=== PATIENT | male | born 1945 | race Caucasian/White ===

== ENCOUNTER 2020-09-17 12:46 | Emergency (ER) | payer MEDICARE, OTHER ==
[2020-09-17 13:31] LABS: BASOPHIL % 0.4 % (0.0-0.4); Basophil (Absolute #) 0.05 (0-0.4); Eosinophil % 3.2 % (0.00-5.0); Eosinophil (Absolute #) 0.44 (0-0.5); Hematocrit 34.4 % (42-50); Hemoglobin 10.8 gm/dl (12.5-18.0); Lymphocyte (Absolute #) 1.42 (1.0-4.6); Lymphocytes % 10.2 % (24.0-44.0); Mean Cell Volume 87.5 fl (78-100); Mean Corpuscular Hemoglobin 27.5 pg (26-32); Mean Corpuscular Hgb Concent. 31.4 g/dl (32-36); Mean Platelet Volume 10.4 fl (7.5-11.0); Monocyte (Absolute #) 0.62 (0.0-1.3); Monocytes % 4.5 % (0.0-12.0); Neutrophil % 81.7 % (36.0-66.0); Platelet Count 215 K/mm3 (150-450); Red Blood Count 3.93 M/mm3 (4.1-5.6); Red Cell Distribution Width 13.5 % (11.5-14.0); White Blood Count 13.9 K/mm3 (4.0-10.5)
[2020-09-17 13:32] LABS: INR 1.07 (0.8-3.0); PROTIME 12.1 SECONDS (8.83-12.87)
[2020-09-17 13:35] LABS: PTT 25.5 SECONDS (24.1-36.1)
[2020-09-17 13:38] LABS: ALBUMIN 3.5 g/dL (3.5-5.0); ALKALINE PHOSPHATASE 76 U/L (38-126); ANION GAP 11.4 MEQ/L (5-15); BLOOD UREA NITROGEN 31 mg/dL (9-20); CHLORIDE 102 mmol/L (98-107); Calcium 8.8 mg/dL (8.4-10.2); Carbon Dioxide 26 mmol/L (22-30); Creatinine 1 1.23 mg/dL (0.66-1.25); EST GLOMERULAR FILTRATION RATE > 60.0 ML/MIN; Glucose 189 mg/dL (74-106); Potassium 4.5 mmol/L (3.5-5.1); SGOT/AST 32 U/L (17-59); SGPT/ALT 19 U/L (0-50); SODIUM 136 mmol/L (137-145); Total Protein 6.1 g/dL (6.3-8.2)
--- NOTE | 2020-09-17 13:50 | ERPHSYRPT ---
- History of Present Illness Source: patient, EMS Exam Limitations: other (Pt w h/o dementia) Patient Subjective Stated Complaint: pt here for falling againist hes walker about an hour ago, pt is confused but family though he was more confused, ems states he is hes normal mentation now, pt co pain to left abd where he fell againist walker,pt co headache and dizziness Triage Nursing Assessment: pt alert, face mask in place, pt knows name, date of , place but note date of month. resp easy, skin w/d/p, linen controller equal and strong, Physician History: 74 yo wm w fall at home in yard. Pt fell against walker. Occurred: just prior to arrival Reason for Fall: unknown Injuries/Pain Location: head, neck, back Loss of Consciousness: other (Unknown) Quality: aching Modifying Factors: Improves With: movement Allergies/Adverse Reactions: clopidogrel bisulfate [From Plavix] Adverse Reaction (Verified 09/17/20 12:59) Home Medications: Amlodipine Besylate 5 mg [Norvasc 5 mg] 5 mg PO DAILY 12/31/15 [History] Aspirin/Dipyridamole [Aggrenox 25 mg-200 mg Capsule] 1 tab PO BID 12/31/15 [History] Atorvastatin Calcium 40 mg PO HS 12/31/15 [History] Hydrochlorothiazide 25 mg [hydroDIURIL 25 MG] 25 mg PO DAILY 12/31/15 [History] Insulin Glargine,Hum.rec.anlog [Lantus Solostar] 30 ml SQ HS 12/31/15 [History] Insulin Lispro [Humalog Kwikpen U-100] 20 units SQ TID 12/31/15 [History] Memantine HCl [Namenda Xr] 1 cap PO DAILY 12/31/15 [History] Metformin HCl 1000 mg [Glucophage 1000 MG] 1,000 mg PO BID 12/31/15 [History] Multivitamin W-Minerals/Lutein [Centrum Silver Tablet] 1 tab PO DAILY 12/31/15 [History] Rivastigmine Tartrate [Exelon] 6 mg PO BID 12/31/15 [History] Triamcinolone Acetonide 0.1% [Kenalog 0.1% Ointment] 1 appful TOP BID 12/31/15 [History] Hx Influenza Vaccination/Date Given: Yes Hx Pneumococcal Vaccination/Date Given: Yes Immunizations Up to Date: Yes Travel Risk - International Travel Have you traveled outside of the country in past 3 weeks: No - Coronavirus Screening Are you exhibiting any of the following symptoms?: No Close contact with a COVID-19 positive Pt in past 14-21 Days: No - Past Medical History Pertinent Past Medical History: Yes Neurological History: Stroke Cardiac History: Congestive Heart Failure, Coronary Artery Disease, High Cholesterol, Hypertension, Other Respiratory History: No Pertinent History Endocrine Medical History: Diabetes Type II Musculoskeletal History: No Pertinent History Other Medical History: PATIENT VAGUE WITH HX - SAYS CAN'T REMEMBER MULTIPLE TIMES - UNABLE TO RECALL MEDICATIONS BUT DID SAY HE TOOK MEDS AND BLOOD PRESSURE WAS GOOD. STATES HE CHECKS HIS BLOOD SUGAR AND SOMETIMES HAS TO TAKE A SHOT. MEDICAL HX PER HOSPITAL REPORT: - AORTIC VALVE STENOSIS WITH HX OF REPLACEMENT. - HX OF KIDNEY STONES. - LEARNING DISABILITY - Past Surgical History Past Surgical History: No - Social History Smoking Status: Former smoker Exposure to second hand smoke: Yes Drug Use: none Patient Lives Alone: No - Nursing Vital Signs Nursing Vital Signs: Initial Vital Signs Blood Pressure 130/59 09/17/20 12:47 Pain Scale Pain Intensity 5 - David Coma Score Best Eye Response (David): (4) open spontaneously Best Verbal Response ([place]): (4) confused conversation Best Motor Response (David): (6) obeys commands David Total: 14 - Physical Exam General Appearance: no apparent distress Head Injury: no evidence of injury (Complains of DHALIWAL) Eye Exam: PERRL/EOMI, eyes nml inspection ENT Exam: airway nml, No evidence of ENT injury, No dental injury, No clear fluid (ears), No clear fluid (nose) Neck Exam: supple, trachea midline (C-spine TTP) Respiratory/Chest Exam: normal breath sounds, No respiratory distress (L posterior inferior thorax ttp) Cardiovascular Exam: normal heart sounds, regular rate/rhythm, normal peripheral pulses, No murmur, No edema Gastrointestinal Exam: soft, normal bowel sounds, No tenderness Back Exam: normal inspection (No T or L-spine TTP/L posterior inferior thorax ttp) Extremity Exam: normal inspection, normal range of motion, capillary refill <3 sec, pelvis stable (L CVA TTP) Peripheral Pulses: carotid (R): 2+, carotid (L): 2+ Neurologic Exam: alert, cooperative, 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, normal mood/affect, sensation nml, No motor deficits, No sensory deficit (Disoriented to time(Baseline)) Skin Exam: normal color, warm, dry, No rash SpO2 Interpretation: normal O2 Delivery: Room Air - Course Nursing assessment & vital signs reviewed: Yes EKG Interpreted by Me: RATE (NSR/R63/Normal QT-QTc/Non-specific ST-T wave changes/Nothing acute) Ordered Tests: Active Orders 24 hr Category Date Time Status EKG-ER Only STAT Care 09/17/20 13:08 Completed IV Insertion STAT Care 09/17/20 13:08 Completed ABDOMEN AND PELVIS W CONTRAST [CT] Stat Exams 09/17/20 13:55 Completed CERVICAL SPINE WO CONTRAST [CT] Stat Exams 09/17/20 14:56 Completed CHEST WITH CONTRAST [CT] Stat Exams 09/17/20 13:56 Completed HEAD WITHOUT CONTRAST [CT] Stat Exams 09/17/20 13:06 Completed CBC W DIFF Stat Lab 09/17/20 13:23 Completed CMP Stat Lab 09/17/20 13:23 Completed CULTURE,URINE Stat Lab 09/17/20 15:00 Received ETHYL ALCOHOL Stat Lab 09/17/20 13:23 Completed PROTIME WITH INR Stat Lab 09/17/20 13:23 Completed PTT Stat Lab 09/17/20 13:23 Completed TROPONIN Q3H Lab 09/17/20 13:23 Completed UA W/RFX UR CULTURE Stat Lab 09/17/20 15:00 Completed Urine Triage Profile Stat Lab 09/17/20 14:07 Completed Medication Summary Discontinued Medications Generic Name Dose Route Start Last Admin Trade Name Basilia PRN Reason Stop Dose Admin Fentanyl Citrate 25 mcg 09/17/20 16:00 09/17/20 16:27 Sublimaze 100 Mcg/2 Ml IV 09/17/20 16:01 Not Given STAT ONE Fentanyl Citrate Confirm 09/17/20 16:03 Sublimaze 100 Mcg/2 Ml Administered 09/17/20 16:04 Dose 100 mcg .ROUTE .STK-MED ONE Sodium Chloride 1,000 mls @ 999 mls/hr 09/17/20 16:05 09/17/20 16:07 Sodium Chloride 0.9% 1000 Ml IV 09/17/20 17:05 999 mls/hr .Q1H1M STA Administration Sodium Chloride Confirm 09/17/20 16:05 Sodium Chloride 0.9% 1000 Ml Administered 09/17/20 16:06 Dose 1,000 mls @ ud .ROUTE .STK-MED ONE Ondansetron HCl 4 mg 09/17/20 16:01 09/17/20 16:07 Zofran 4 Mg/2 Ml Vial IV 09/17/20 16:02 4 mg STAT ONE Administration Ondansetron HCl Confirm 09/17/20 16:02 Zofran 4 Mg/2 Ml Vial Administered 09/17/20 16:03 Dose 4 mg .ROUTE .STK-MED ONE Ondansetron HCl Confirm 09/17/20 16:07 Zofran 4 Mg/2 Ml Vial Administered 09/17/20 16:08 Dose 4 mg .ROUTE .STK-MED ONE Lab/Rad Data: Laboratory Result Diagrams 09/17/20 13:23 09/17/20 13:23 Laboratory Results 09/17/20 09/17/20 09/17/20 Range/Units 15:00 14:07 13:23 WBC (4.0-10.5) K/mm3 RBC (4.1-5.6) M/mm3 Hgb (12.5-18.0) gm/dl Hct (42-50) % MCV (78-100) fl MCH (26-32) pg MCHC (32-36) g/dl RDW (11.5-14.0) % Plt Count (150-450) K/mm3 MPV (7.5-11.0) fl Gran % (36.0-66.0) % Eos # (Auto) (0-0.5) Absolute Lymphs (auto) (1.0-4.6) Absolute Monos (auto) (0.0-1.3) Lymphocytes % (24.0-44.0) % Monocytes % (0.0-12.0) % Eosinophils % (0.00-5.0) % Basophils % (0.0-0.4) % Absolute Granulocytes (1.4-6.9) Basophils # (0-0.4) PT (8.83-12.87) SECONDS INR (0.8-3.0) APTT (24.1-36.1) SECONDS Sodium (137-145) mmol/L Potassium (3.5-5.1) mmol/L Chloride (98-107) mmol/L Carbon Dioxide (22-30) mmol/L Anion Gap (5-15) MEQ/L BUN (9-20) mg/dL Creatinine (0.66-1.25) mg/dL Estimated GFR ML/MIN Glucose (74-106) mg/dL Calcium (8.4-10.2) mg/dL Total Bilirubin (0.2-1.3) mg/dL AST (17-59) U/L ALT (0-50) U/L Alkaline Phosphatase (38-126) U/L Troponin I (0.000-0.034) ng/mL Serum Total Protein (6.3-8.2) g/dL Albumin (3.5-5.0) g/dL Urine Color YELLOW (YELLOW) Urine Appearance SLIGHTLY CLOUDY (CLEAR) Urine pH 5.0 (5-6) Ur Specific [place] 1.019 (1.005-1.025) Urine Protein 100 (Negative) Urine Ketones NEGATIVE (NEGATIVE) Urine Blood SMALL (0-5) Brian/ul Urine Nitrite NEGATIVE (NEGATIVE) Urine Bilirubin NEGATIVE (NEGATIVE) Urine Urobilinogen NEGATIVE (0-1) mg/dL Ur Leukocyte Esterase TRACE (NEGATIVE) Urine WBC (Auto) 26-50 (0-5) /HPF Urine RBC (Auto) 11-15 (0-2) /HPF U Epithel Cells (Auto) NONE (FEW) /HPF Urine Bacteria (Auto) FEW (NEGATIVE) /HPF Urine Mucus (Auto) SLIGHT (NEGATIVE) /HPF Urine Culture Reflexed YES (NO) Urine Glucose 50 (NEGATIVE) mg/dL Urine Opiates Level NEGATIVE (NEGATIVE) Ur Methadone NEGATIVE (NEGATIVE) Urine Barbiturates NEGATIVE (NEGATIVE) Ur Phencyclidine (PCP) NEGATIVE (NEGATIVE) Urine Amphetamine NEGATIVE (NEGATIVE) U Benzodiazepine Level NEGATIVE (NEGATIVE) Urine Cocaine NEGATIVE (NEGATIVE) Urine Marijuana (THC) NEGATIVE (NEGATIVE) Ethyl Alcohol < 10 (0-10) mg/dL 09/17/20 09/17/20 09/17/20 Range/Units 13:23 13:23 13:23 WBC (4.0-10.5) K/mm3 RBC (4.1-5.6) M/mm3 Hgb (12.5-18.0) gm/dl Hct (42-50) % MCV (78-100) fl MCH (26-32) pg MCHC (32-36) g/dl RDW (11.5-14.0) % Plt Count (150-450) K/mm3 MPV (7.5-11.0) fl Gran % (36.0-66.0) % Eos # (Auto) (0-0.5) Absolute Lymphs (auto) (1.0-4.6) Absolute Monos (auto) (0.0-1.3) Lymphocytes % (24.0-44.0) % Monocytes % (0.0-12.0) % Eosinophils % (0.00-5.0) % Basophils % (0.0-0.4) % Absolute Granulocytes (1.4-6.9) Basophils # (0-0.4) PT 12.1 (8.83-12.87) SECONDS INR 1.07 (0.8-3.0) APTT 25.5 (24.1-36.1) SECONDS Sodium 136 L (137-145) mmol/L Potassium 4.5 (3.5-5.1) mmol/L Chloride 102 (98-107) mmol/L Carbon Dioxide 26 (22-30) mmol/L Anion Gap 11.4 (5-15) MEQ/L BUN 31 H (9-20) mg/dL Creatinine 1.23 (0.66-1.25) mg/dL Estimated GFR > 60.0 ML/MIN Glucose 189 H (74-106) mg/dL Calcium 8.8 (8.4-10.2) mg/dL Total Bilirubin 0.70 (0.2-1.3) mg/dL AST 32 (17-59) U/L ALT 19 (0-50) U/L Alkaline Phosphatase 76 (38-126) U/L Troponin I < 0.012 (0.000-0.034) ng/mL Serum Total Protein 6.1 L (6.3-8.2) g/dL Albumin 3.5 (3.5-5.0) g/dL Urine Color (YELLOW) Urine Appearance (CLEAR) Urine pH (5-6) Ur Specific [place] (1.005-1.025) Urine Protein (Negative) Urine Ketones (NEGATIVE) Urine Blood (0-5) Brian/ul Urine Nitrite (NEGATIVE) Urine Bilirubin (NEGATIVE) Urine Urobilinogen (0-1) mg/dL Ur Leukocyte Esterase (NEGATIVE) Urine WBC (Auto) (0-5) /HPF Urine RBC (Auto) (0-2) /HPF U Epithel Cells (Auto) (FEW) /HPF Urine Bacteria (Auto) (NEGATIVE) /HPF Urine Mucus (Auto) (NEGATIVE) /HPF Urine Culture Reflexed (NO) Urine Glucose (NEGATIVE) mg/dL Urine Opiates Level (NEGATIVE) Ur Methadone (NEGATIVE) Urine Barbiturates (NEGATIVE) Ur Phencyclidine (PCP) (NEGATIVE) Urine Amphetamine (NEGATIVE) U Benzodiazepine Level (NEGATIVE) Urine Cocaine (NEGATIVE) Urine Marijuana (THC) (NEGATIVE) Ethyl Alcohol (0-10) mg/dL 09/17/20 Range/Units 13:23 WBC 13.9 H (4.0-10.5) K/mm3 RBC 3.93 L (4.1-5.6) M/mm3 Hgb 10.8 L (12.5-18.0) gm/dl Hct 34.4 L (42-50) % MCV 87.5 (78-100) fl MCH 27.5 (26-32) pg MCHC 31.4 L (32-36) g/dl RDW 13.5 (11.5-14.0) % Plt Count 215 (150-450) K/mm3 MPV 10.4 (7.5-11.0) fl Gran % 81.7 H (36.0-66.0) % Eos # (Auto) 0.44 (0-0.5) Absolute Lymphs (auto) 1.42 (1.0-4.6) Absolute Monos (auto) 0.62 (0.0-1.3) Lymphocytes % 10.2 L (24.0-44.0) % Monocytes % 4.5 (0.0-12.0) % Eosinophils % 3.2 (0.00-5.0) % Basophils % 0.4 (0.0-0.4) % Absolute Granulocytes 11.40 H (1.4-6.9) Basophils # 0.05 (0-0.4) PT (8.83-12.87) SECONDS INR (0.8-3.0) APTT (24.1-36.1) SECONDS Sodium (137-145) mmol/L Potassium (3.5-5.1) mmol/L Chloride (98-107) mmol/L Carbon Dioxide (22-30) mmol/L Anion Gap (5-15) MEQ/L BUN (9-20) mg/dL Creatinine (0.66-1.25) mg/dL Estimated GFR ML/MIN Glucose (74-106) mg/dL Calcium (8.4-10.2) mg/dL Total Bilirubin (0.2-1.3) mg/dL AST (17-59) U/L ALT (0-50) U/L Alkaline Phosphatase (38-126) U/L Troponin I (0.000-0.034) ng/mL Serum Total Protein (6.3-8.2) g/dL Albumin (3.5-5.0) g/dL Urine Color (YELLOW) Urine Appearance (CLEAR) Urine pH (5-6) Ur Specific [place] (1.005-1.025) Urine Protein (Negative) Urine Ketones (NEGATIVE) Urine Blood (0-5) Brian/ul Urine Nitrite (NEGATIVE) Urine Bilirubin (NEGATIVE) Urine Urobilinogen (0-1) mg/dL Ur Leukocyte Esterase (NEGATIVE) Urine WBC (Auto) (0-5) /HPF Urine RBC (Auto) (0-2) /HPF U Epithel Cells (Auto) (FEW) /HPF Urine Bacteria (Auto) (NEGATIVE) /HPF Urine Mucus (Auto) (NEGATIVE) /HPF Urine Culture Reflexed (NO) Urine Glucose (NEGATIVE) mg/dL Urine Opiates Level (NEGATIVE) Ur Methadone (NEGATIVE) Urine Barbiturates (NEGATIVE) Ur Phencyclidine (PCP) (NEGATIVE) Urine Amphetamine (NEGATIVE) U Benzodiazepine Level (NEGATIVE) Urine Cocaine (NEGATIVE) Urine Marijuana (THC) (NEGATIVE) Ethyl Alcohol (0-10) mg/dL - Progress Progress Note: 09/17/20 15:[address] Saldivar at [facility] Counseled pt/family regarding: lab results, rad results - Departure Departure Disposition: Transfer Clinical Impression: Fracture, ribs, Retroperitoneal hematoma Condition: Stable Critical Care Time: No Referrals: HARLAN BEAL, [Primary Care Provider] -
--- NOTE | 2020-09-17 15:08 | XRAY ---
Indication: Pain following fall. Multiple contiguous axial images obtained through the cervical spine. Sagittal and coronal reformatted images obtained. Comparison: None Osseous structures demineralized consistent with patient's age. Axial images negative for acute fracture, suspicious bony lesions, or spinal canal stenosis. Minimal/mild multilevel anterior endplate spurring. Sagittal and coronal reformatted images demonstrates normal alignment with vertebral body heights/disc spaces maintained. No acute compression fracture, subluxation, or jumped facet. Normal-appearing craniocervical junction. Visualized noncontrasted soft tissues demonstrates moderate bilateral carotid and vertebral artery calcifications. CT head and CT chest reported separately. Impression: 1. Negative for acute fracture/subluxation. 2. Osteopenia, multilevel endplate spurring, and scattered arteriosclerotic calcifications.
--- NOTE | 2020-09-17 15:09 | XRAY ---
Indication: Pain following fall. Multiple contiguous images obtained through the head without contrast. Comparison: None Age-appropriate global atrophy and moderate periventricular degenerative micro-ischemia bilaterally. Small subcentimeter remote infarcts left basal ganglia, right anterior morris radiata, and left posterior morris radiata. No acute intracranial hemorrhage, abnormal extra-axial fluid collection, or mass effect. Fourth ventricle is midline without hydrocephalus. Bony calvarium intact. Visualized paranasal sinuses and mastoid air cells are clear. Impression: Nonacute senile brain with multifocal small old infarcts.
--- NOTE | 2020-09-17 15:13 | XRAY ---
Indication: Pain following fall. Multiple contiguous axial images obtained through the chest using 100 cc Isovue 370 contrast. Comparison: December 31, 2015. Lungs demonstrate moderate bilateral dependent atelectasis greatest in the lung bases. New tiny left effusion. Stable scattered calcified granulomas bilaterally. No suspicious pulmonary mass, infiltrate, effusion, or pneumothorax. Heart is not enlarged with stable aortic valve replacement surgery. Aorta remains minimally arteriosclerotic without aneurysm/dissection. Stable tiny mediastinal and bilateral hilar calcified nodes. No pathologic lymphadenopathy. Bony thorax demonstrates new minimally displaced left posterior 10-12 rib and nondisplaced lateral left 7 rib fractures. Stable osteopenia and mild degenerative changes throughout the spine. CT abdomen/pelvis reported separately. Impression: 1. New left 7 and left 10-12 rib fractures with tiny hemothorax. No pneumothorax. 2. Stable osteopenia, degenerative spondylosis, and old granulomatous disease. 3. Remaining CT chest with contrast exam is negative.
--- NOTE | 2020-09-17 15:21 | XRAY ---
Indication: Pain following fall. Multiple contiguous axial images obtained through the abdomen and pelvis using 100 cc Isovue 370 contrast. Comparison: None CT chest and left rib fractures reported separately. There is large left retroperitoneal hemorrhage at least 6.7 x 13 x 20 cm in greatest AP, transverse, and CC projections respectively displacing the left kidney anteriorly. No intra-abdominal free fluid/air. Noncontrasted stomach and bowel loops appear nonobstructed. Normal appendix. Sigmoid diverticulosis without diverticulitis and benign appearing chunky prostate calcifications. A few hepatic/splenic calcified granulomas. Remaining liver, gallbladder, pancreas, spleen, adrenal glands, kidneys, ureters, and bladder appear unremarkable. Diffuse scattered vascular calcifications. No AAA or pathologic retroperitoneal lymphadenopathy. Osseous structures intact with mild osteopenia and mild multilevel thoracolumbar degenerative spondylosis. Impression: 1. Large left retroperitoneal hematoma. 2. Incidental sigmoid diverticulosis, benign prostate calcifications, chronic bony findings, and old granulomatous disease. Comment: Telephone report was given to ordering clinician Dr. Min at 1515 hrs. on September 17, 2020.
[2020-09-17 15:36] LABS: Amphetamine,Urine NEGATIVE (NEGATIVE); Barbiturate,Urine NEGATIVE (NEGATIVE); Benzodiazepine,Urine NEGATIVE (NEGATIVE); Cocaine,Urine NEGATIVE (NEGATIVE); Methadone,Urine NEGATIVE (NEGATIVE); Opiate,Urine NEGATIVE (NEGATIVE); PCP,Urine NEGATIVE (NEGATIVE); THC,Urine NEGATIVE (NEGATIVE)
[2020-09-17 15:37] LABS: Appearance SLIGHTLY CLOUDY (CLEAR); Bacteria FEW /HPF (NEGATIVE); Bilirubin NEGATIVE (NEGATIVE); Blood SMALL Ery/ul (0-5); Glucose 50 mg/dL (NEGATIVE); Ketones NEGATIVE (NEGATIVE); Leukocyte Esterase TRACE (NEGATIVE); Mucus SLIGHT /HPF (NEGATIVE); Nitrite NEGATIVE (NEGATIVE); Protein,Urine Dip 100 (Negative); Specific Gravity 1.019 (1.005-1.025); Urobilinogen NEGATIVE mg/dL (0-1); WBC 26-50 /HPF (0-5)
[2020-09-17] MEDS ORDERED: SUBLIMAZE 100 MCG/2 ML IV ONE (16:00)
[2020-09-17] MEDS ORDERED: Zofran 4 MG/2 ML VIAL IV ONE (16:01)
[2020-09-17] MEDS ORDERED: Zofran 4 MG/2 ML VIAL ONE ×2 (16:02→16:07)
[2020-09-17] MEDS ORDERED: SUBLIMAZE 100 MCG/2 ML ONE (16:03)
[2020-09-17] MEDS ORDERED: Sodium Chloride 0.9% 1000 ML 1,000 ML ONE (16:05)
[2020-09-17] MEDS ORDERED: Sodium Chloride 0.9% 1000 ML 1,000 ML IV STA (16:05)
[2020-09-17 16:26] VITALS: BP 130/59; PULSE 70; O2SAT 96
== END 2020-09-17 16:30 | disposition short-term general hospital (02) ==
LOC: ED 12:46
DX: S22.49XA Multiple fractures of ribs, unspecified side, initial encounter for closed fracture (principal); K66.1 Hemoperitoneum; R10.9 Unspecified abdominal pain; R51.9 Headache, unspecified; R42 Dizziness and giddiness; W19.XXXA Unspecified fall, initial encounter; I50.9 Heart failure, unspecified; I25.10 Atherosclerotic heart disease of native coronary artery without angina pectoris; E78.5 Hyperlipidemia, unspecified; I10 Essential (primary) hypertension; E11.9 Type 2 diabetes mellitus without complications; Z79.899 Other long term (current) drug therapy
CPT/HCPCS: 36000; 36415; 51702; 70450; 71260; 72125; 74177; 80053; 80307; 81001; 84484; 85025; 85610; 85730; 87077; 87086; 87186; 93005; 96374; 99285; G0480; P9612; J2405; J3010

== ENCOUNTER 2021-06-26 23:48 | Emergency (ER) | payer MEDICARE | END 2021-06-27 00:01 | disposition left against medical advice (07) | LOC: ED 23:48 | DX: Z53.21 Procedure and treatment not carried out due to patient leaving prior to being seen by health care provider (principal) | CPT/HCPCS: 99282 ==

== ENCOUNTER 2023-03-29 20:26 | Emergency (ER) | payer MEDICARE ==
[2023-03-29 20:59] VITALS: TEMP 97.9
--- NOTE | 2023-03-29 21:12 | ERPHSYRPT ---
- History of Present Illness Time Seen by Provider: 03/29/23 20:27 Source: patient, EMS, alf records Exam Limitations: clinical condition Patient Subjective Stated Complaint: per [facility] staff, the pt has been agitated and combative today. he stated to alf staff marquis he was gong to "kill himself" Triage Nursing Assessment: pt alert, confused. oriented to person only. pt arrive per ambulance and ambulates with assist from ems cot to stretcher. unsteady gait. respirations nonlabored with lungs cta. skin warm and dry. some small scabs noted to lower ext. pupils equal and reactive. bilat upper and lower ext strength equal and wnl. Physician History: 77 years old male with a history of hypertension, hyperlipidemia, diabetes mellitus, Alzheimer's dementia currently resident of alf is brought in the ER after patient was agitated earlier and tried to hit staff couple of times and later on made a comment that he is suicidal. Patient is awake and alert but not oriented on presentation. He is not agitated. He is sent in here for psychiatric evaluation. Further Allergies/Adverse Reactions: clopidogrel bisulfate [From Plavix] Adverse Reaction (Verified 03/29/23 20:59) Home Medications: Atorvastatin Calcium 40 mg PO HS 12/31/15 [History] Insulin Glargine,Hum.rec.anlog [Lantus Solostar] 30 ml SQ HS 12/31/15 [History] Insulin Lispro [Humalog Kwikpen U-100] 10 units SQ TIDAC 12/31/15 [History] Rivastigmine Tartrate [Exelon] 6 mg PO BID 12/31/15 [History] Cholecalciferol (Vitamin D3) [Vitamin D] 5,000 unit PO DAILY 03/29/23 [History] Clopidogrel Bisulfate [Clopidogrel] 75 mg PO DAILY 03/29/23 [History] Furosemide 40 mg [Lasix 40 MG] 40 mg PO DAILY 03/29/23 [History] Glucagon [Baqsimi] 3 mg NS UD 03/29/23 [History] Insulin Glargine [Lantus Insulin] 10 unit SQ DAILY 03/29/23 [History] Insulin Lispro [Humalog] 0 unit SQ UD 03/29/23 [History] Melatonin 5 mg PO HS 03/29/23 [History] Memantine HCl [Namenda] 10 mg PO BID 03/29/23 [History] Metoprolol Tartrate 25 mg [Lopressor 25MG Tab] 25 mg PO DAILY 03/29/23 [History] Potassium Chloride 10 meq PO BID 03/29/23 [History] Sertraline HCl [Zoloft] 25 mg PO DAILY 03/29/23 [History] Tamsulosin HCl 0.4 mg [Flomax 0.4 MG] 0.4 mg PO DAILY 03/29/23 [History] Trazodone HCl 50 mg [Desyrel 50 mg] 50 mg PO HSPRN PRN 03/29/23 [History] Hx Tetanus, Diphtheria Vaccination/Date Given: (uk) Hx Influenza Vaccination/Date Given: (uk) Hx Pneumococcal Vaccination/Date Given: Yes Immunizations Up to Date: (uk) Travel Risk - International Travel Have you traveled outside of the country in past 3 weeks: No - Coronavirus Screening Are you exhibiting any of the following symptoms?: No Close contact with a COVID-19 positive Pt in past 14-21 Days: No - Vaccine Status Have you recieved a Covid-19 vaccination: No (uk) - Review of Systems All Other Systems: Unable due to dementia - Past Medical History Pertinent Past Medical History: Yes Neurological History: Alzheimer's Disease, Dementia, Stroke Cardiac History: Coronary Artery Disease Respiratory History: CHF, Sleep Apnea Endocrine Medical History: Diabetes Type II Musculoskeletal History: No Pertinent History Other Medical History: pt unable to answer questions- hx obtained from pt's chart. - AORTIC VALVE STENOSIS WITH HX OF REPLACEMENT. - HX OF KIDNEY STONES. - LEARNING DISABILITY - Past Surgical History Past Surgical History: No Other Surgical History: obtained from previous visit - Social History Smoking Status: Former smoker Exposure to second hand smoke: Yes Drug Use: none Patient Lives Alone: No - Nursing Vital Signs Nursing Vital Signs: Initial Vital Signs Temperature 97.9 F 03/29/23 20:32 Pulse Rate 73 03/29/23 20:32 Respiratory Rate 18 03/29/23 20:32 Blood Pressure 185/68 03/29/23 20:32 O2 Sat by Pulse Oximetry 96 03/29/23 20:32 Pain Scale Pain Intensity 0 - Physical Exam General Appearance: no apparent distress, alert Eye Exam: PERRL/EOMI Ears, Nose, Throat Exam: normal ENT inspection Neck Exam: normal inspection, supple, full range of motion Respiratory Exam: normal breath sounds, lungs clear Cardiovascular Exam: regular rate/rhythm, normal heart sounds Gastrointestinal/Abdomen Exam: soft, normal bowel sounds, No tenderness Back Exam: normal inspection Extremity Exam: normal inspection, normal range of motion Neurologic Exam: alert, No oriented x 3 Skin Exam: normal color SpO2 Interpretation: normal SpO2: 96 O2 Delivery: Room Air Ordered Tests: Active Orders 24 hr Category Date Time Status EKG-ER Only STAT Care 03/29/23 21:00 Active cath [Cath for Specimen-Straight] STAT Care 03/29/23 20:44 Active CBC W DIFF Stat Lab 03/29/23 21:35 Completed CMP Stat Lab 03/29/23 21:35 Completed CULTURE,URINE Stat Lab 03/29/23 20:45 Received MAG [MAGNESIUM] Stat Lab 03/29/23 21:35 Completed UA W/RFX UR CULTURE Stat Lab 03/29/23 20:46 Completed Urine Triage Profile Stat Lab 03/29/23 20:45 Completed Medication Summary Generic Name Dose Route Start Last Admin Trade Name Freq PRN Reason Stop Dose Admin Sodium Chloride 1,000 mls @ 75 mls/hr 03/30/23 00:15 03/30/23 00:32 Sodium Chloride 0.9% 1000 Ml IV 04/29/23 00:14 Not Given .[id number] KELLEN Sodium Chloride 500 mls @ 500 mls/hr 03/30/23 00:28 03/30/23 00:30 Sodium Chloride 0.9% 500 Ml IV 03/30/23 01:27 500 mls/hr .Q1H ONE Administration Discontinued Medications Generic Name Dose Route Start Last Admin Trade Name Freq PRN Reason Stop Dose Admin Clonidine 0.2 mg 03/29/23 21:38 03/29/23 21:43 Clonidine Hcl 0.1 Mg Tablet PO 03/29/23 21:39 0.2 mg STAT ONE Administration Clonidine Confirm 03/29/23 21:42 Clonidine Hcl 0.1 Mg Tablet Administered 03/29/23 21:43 Dose 0.2 mg .ROUTE .STK-MED ONE Ceftriaxone Sodium/Dextrose 1 g in 50 mls @ 100 mls/hr 03/29/23 23:03 03/29/23 23:24 Rocephin 1 Gm-D5w 50 Ml Bag IV 03/29/23 23:32 100 ml/hr STAT STA 100 mls/hr Administration Ceftriaxone Sodium/Dextrose Confirm 03/29/23 23:21 Rocephin 1 Gm-D5w 50 Ml Bag Administered 03/29/23 23:22 Dose 1 g in 50 mls @ ud IV .STK-MED ONE Sodium Chloride Confirm 03/30/23 00:28 Sodium Chloride 0.9% 500 Ml Administered 03/30/23 00:29 Dose 500 mls @ ud IV .STK-MED ONE Lab/Rad Data: Laboratory Result Diagrams 03/29/23 21:35 03/29/23 21:35 Laboratory Results 03/29/23 03/29/23 03/29/23 Range/Units 21:35 21:35 21:35 WBC 8.9 (4.0-10.5) x10^3/uL RBC 4.44 (4.1-5.6) x10^6/uL Hgb 13.1 (12.5-18.0) g/dL Hct 40.6 L (42-50) % MCV 91.4 (78-100) fL MCH 29.5 (26-32) pg MCHC 32.3 (32-36) g/dL RDW 13.5 (11.5-14.0) % Plt Count 184 (150-450) x10^3/uL MPV 9.7 (7.5-11.0) fL Gran % 68.2 H (36.0-66.0) % Immature Gran % (Auto) 0.6 H (0.00-0.4) % Nucleat RBC Rel Count 0.0 (0.00-0.1) % Eos # (Auto) 0.49 (0-0.5) x10^3/uL Immature Gran # (Auto) 0.05 H (0.00-0.03) x10^3u/L Absolute Lymphs (auto) 1.47 (1.0-4.6) x10^3/uL Absolute Monos (auto) 0.76 (0.0-1.3) x10^3/uL Absolute Nucleated RBC 0.00 (0.00-0.01) x10^3u/L Lymphocytes % 16.4 L (24.0-44.0) % Monocytes % 8.5 (0.0-12.0) % Eosinophils % 5.5 H (0.00-5.0) % Basophils % 0.8 (0.0-0.4) % Absolute Granulocytes 6.10 (1.4-6.9) x10^3/uL Basophils # 0.07 (0-0.4) x10^3/uL Sodium 139 (137-145) mmol/L Potassium 4.4 (3.5-5.1) mmol/L Chloride 100 (98-107) mmol/L Carbon Dioxide 30 (22-30) mmol/L Anion Gap 13.0 (5-15) MEQ/L BUN 31 H (9-20) mg/dL Creatinine 1.75 H (0.66-1.25) mg/dL Estimated GFR 40.5 ML/MIN Glucose 289 H (74-106) mg/dL Calcium 8.4 (8.4-10.2) mg/dL Magnesium 2.0 (1.6-2.3) mg/dL Total Bilirubin 0.70 (0.2-1.3) mg/dL AST 22 (17-59) U/L ALT 20 (0-50) U/L Alkaline Phosphatase 104 (38-126) U/L Serum Total Protein 6.0 L (6.3-8.2) g/dL Albumin 3.3 L (3.5-5.0) g/dL Urine Color (Yellow) Urine Appearance (Clear) Urine pH (4.6-8.0) Ur Specific [place] (1.005-1.030) Urine Protein (Negative) Urine Glucose (UA) (Negative) mg/dL Urine Ketones (Negative) Urine Blood (Negative) Urine Nitrite (Negative) Urine Bilirubin (Negative) Urine Urobilinogen (0.2) mg/dL Ur Leukocyte Esterase (Negative) U Hyaline Cast (Auto) (0-2) /LPF Urine Microscopic RBC (0-5) /HPF Urine Microscopic WBC (0-5) /HPF Ur Epithelial Cells (None Seen) /HPF Urine Bacteria (None Seen) /HPF Urine Culture Reflexed (NO) Urine Opiates Level (NEGATIVE) Ur Methadone (NEGATIVE) Urine Barbiturates (NEGATIVE) Ur Phencyclidine (PCP) (NEGATIVE) Urine Amphetamine (NEGATIVE) U Benzodiazepine Level (NEGATIVE) Urine Cocaine (NEGATIVE) Urine Marijuana (THC) (NEGATIVE) 03/29/23 03/29/23 Range/Units 20:46 20:45 WBC (4.0-10.5) x10^3/uL RBC (4.1-5.6) x10^6/uL Hgb (12.5-18.0) g/dL Hct (42-50) % MCV (78-100) fL MCH (26-32) pg MCHC (32-36) g/dL RDW (11.5-14.0) % Plt Count (150-450) x10^3/uL MPV (7.5-11.0) fL Gran % (36.0-66.0) % Immature Gran % (Auto) (0.00-0.4) % Nucleat RBC Rel Count (0.00-0.1) % Eos # (Auto) (0-0.5) x10^3/uL Immature Gran # (Auto) (0.00-0.03) x10^3u/L Absolute Lymphs (auto) (1.0-4.6) x10^3/uL Absolute Monos (auto) (0.0-1.3) x10^3/uL Absolute Nucleated RBC (0.00-0.01) x10^3u/L Lymphocytes % (24.0-44.0) % Monocytes % (0.0-12.0) % Eosinophils % (0.00-5.0) % Basophils % (0.0-0.4) % Absolute Granulocytes (1.4-6.9) x10^3/uL Basophils # (0-0.4) x10^3/uL Sodium (137-145) mmol/L Potassium (3.5-5.1) mmol/L Chloride (98-107) mmol/L Carbon Dioxide (22-30) mmol/L Anion Gap (5-15) MEQ/L BUN (9-20) mg/dL Creatinine (0.66-1.25) mg/dL Estimated GFR ML/MIN Glucose (74-106) mg/dL Calcium (8.4-10.2) mg/dL Magnesium (1.6-2.3) mg/dL Total Bilirubin (0.2-1.3) mg/dL AST (17-59) U/L ALT (0-50) U/L Alkaline Phosphatase (38-126) U/L Serum Total Protein (6.3-8.2) g/dL Albumin (3.5-5.0) g/dL Urine Color Yellow (Yellow) Urine Appearance Cloudy A (Clear) Urine pH 5.5 (4.6-8.0) Ur Specific [place] 1.025 (1.005-1.030) Urine Protein 300 A (Negative) Urine Glucose (UA) >=1000 A (Negative) mg/dL Urine Ketones Negative (Negative) Urine Blood Small A (Negative) Urine Nitrite Positive A (Negative) Urine Bilirubin Negative (Negative) Urine Urobilinogen 1.0 A (0.2) mg/dL Ur Leukocyte Esterase Moderate A (Negative) U Hyaline Cast (Auto) 3-5 A (0-2) /LPF Urine Microscopic RBC 3-5 (0-5) /HPF Urine Microscopic WBC >100 A (0-5) /HPF Ur Epithelial Cells None Seen (None Seen) /HPF Urine Bacteria Many A (None Seen) /HPF Urine Culture Reflexed ORDERED SEPARATELY (NO) Urine Opiates Level NEGATIVE (NEGATIVE) Ur Methadone NEGATIVE (NEGATIVE) Urine Barbiturates NEGATIVE (NEGATIVE) Ur Phencyclidine (PCP) NEGATIVE (NEGATIVE) Urine Amphetamine NEGATIVE (NEGATIVE) U Benzodiazepine Level NEGATIVE (NEGATIVE) Urine Cocaine NEGATIVE (NEGATIVE) Urine Marijuana (THC) NEGATIVE (NEGATIVE) - Progress Progress: improved, re-examined Progress Note: 03/29/23 21:15 77 years old male with a history of hypertension, hyperlipidemia, diabetes mellitus, Alzheimer's dementia currently resident of alf is brought in the ER after patient was agitated earlier and tried to hit staff couple of times and later on made a comment that he is suicidal. Patient is awake and alert but not oriented on presentation. He is not agitated. He is sent in here for psychiatric evaluation. Patient is not agitated. Not in any distress. Vital stable. Once patient is medically clear, behavioral health evaluation will be obtained. 03/30/23 00:03 Patient remained calm while in the ER. Work-up showed normal white count, mild JUANA with baseline creatinine around 1.3 and today is 1.7. Given a bolus of fluid. Patient denies being suicidal and reported that patient gets upset with 1 particular staff at the alf. He does not have any history of suicidal attempt in the past. He is given Rocephin for UTI. I have discussed with Dr. Pro hospitalist on- call, reviewed history, work-up, hospitalist does not think patient needs to be admitted and since he is denying being suicidal and is calm, do not think psychiatric evaluation is needed. I have discussed with patient and and they agree with plan of going back to alf and will continue with antibiotics there. Discussed with Dr.: Other Will see patient in: hospital (observation) Counseled pt/family regarding: lab results, diagnosis Medical Desision Making - Discussion of managment Care discussed with:: hospitalist Reviewed:: Test results Agreed on:: Treatment plan, place in obs Will see patient: in hospital - Risk of complications The pt has a high risk of morbidity or mortality based on: Decision regarding hospitilization or escalation of hosp level of care - Departure Departure Disposition: Home Clinical Impression: Acute UTI, Dementia with aggressive behavior, JUANA (acute kidney injury) Condition: Stable Critical Care Time: No Referrals: JENELLE SMITH MD [ACTIVE STAFF] - Follow up with PCP 1 day Instructions: Urinary Tract Infection, Adult (DC) Additional Instructions: Follow-up with primary care for reevaluation 1-2 days. Drink plenty of fluids to keep yourself well-hydrated. Continue with antibiotics. Return to ER for worsening of symptoms. Prescriptions: Cephalexin Mh 500 mg [Keflex 500 mg] 500 mg PO TID #21 cap
[2023-03-29] MEDS ORDERED: CLONIDINE 0.1 MG TABLET PO ONE (21:38)
[2023-03-29] MEDS ORDERED: CLONIDINE 0.1 MG TABLET ONE (21:42)
[2023-03-29 21:44] LABS: ADD URINE CULTURE? ORDERED SEPARATELY (NO); Appearance Cloudy (Clear); Bacteria Many /HPF (None Seen); Bilirubin Negative (Negative); Blood Small (Negative); Epithelial Cells None Seen /HPF (None Seen); Glucose, Urine >=1000 mg/dL (Negative); Ketones Negative (Negative); Leukocyte Esterase Moderate (Negative); Nitrite Positive (Negative); Ph 5.5 (4.6-8.0); Protein,Urine Dip 300 (Negative); Specific Gravity 1.025 (1.005-1.030); WBC >100 /HPF (0-5)
[2023-03-29 21:44] LABS: Amphetamine,Urine NEGATIVE (NEGATIVE); Barbiturate,Urine NEGATIVE (NEGATIVE); Benzodiazepine,Urine NEGATIVE (NEGATIVE); Cocaine,Urine NEGATIVE (NEGATIVE); Methadone,Urine NEGATIVE (NEGATIVE); Opiate,Urine NEGATIVE (NEGATIVE); PCP,Urine NEGATIVE (NEGATIVE); THC,Urine NEGATIVE (NEGATIVE)
[2023-03-29 21:48] LABS: BASOPHIL % 0.8 % (0.0-0.4); Basophil (Absolute #) 0.07 x10^3/uL (0-0.4); Eosinophil % 5.5 % (0.00-5.0); Eosinophil (Absolute #) 0.49 x10^3/uL (0-0.5); Hematocrit 40.6 % (42-50); Hemoglobin 13.1 g/dL (12.5-18.0); IMMATURE GRAN # 0.05 x10^3u/L (0.00-0.03); IMMATURE GRAN % 0.6 % (0.00-0.4); Lymphocyte (Absolute #) 1.47 x10^3/uL (1.0-4.6); Lymphocytes % 16.4 % (24.0-44.0); Mean Cell Volume 91.4 fL (78-100); Mean Corpuscular Hemoglobin 29.5 pg (26-32); Mean Corpuscular Hgb Concent. 32.3 g/dL (32-36); Mean Platelet Volume 9.7 fL (7.5-11.0); Monocyte (Absolute #) 0.76 x10^3/uL (0.0-1.3); Monocytes % 8.5 % (0.0-12.0); Neutrophil % 68.2 % (36.0-66.0); Platelet Count 184 x10^3/uL (150-450); Red Blood Count 4.44 x10^6/uL (4.1-5.6); Red Cell Distribution Width 13.5 % (11.5-14.0); White Blood Count 8.9 x10^3/uL (4.0-10.5)
[2023-03-29 22:05] LABS: ALBUMIN 3.3 g/dL (3.5-5.0); BILIRUBIN,TOTAL 0.7 mg/dL (0.2-1.3); Calcium 8.4 mg/dL (8.4-10.2); Creatinine 1 1.75 mg/dL (0.66-1.25); EST GLOMERULAR FILTRATION RATE 40.5 ML/MIN; Potassium 4.4 mmol/L (3.5-5.1)
[2023-03-29] MEDS ORDERED: ROCEPHIN 1 Gm-D5w 50 ml Bag** 1 G/50 ML IVPB IV STA (23:03)
[2023-03-29] MEDS ORDERED: ROCEPHIN 1 Gm-D5w 50 ml Bag** 1 G/50 ML IVPB IV ONE (23:21)
[2023-03-30] MEDS ORDERED: Sodium Chloride 0.9% 1000 ML 1,000 ML IV SCH (00:15)
[2023-03-30] MEDS ORDERED: Sodium Chloride 0.9% 500 ML 500 ML IV ONE ×2 (00:28)
[2023-03-30 01:51] VITALS: BP 126/63; PULSE 64; RESP 16; O2SAT 99
== END 2023-03-30 01:51 | disposition home or self-care (01) ==
LOC: ED 20:26
DX: N39.0 Urinary tract infection, site not specified (principal); N17.9 Acute kidney failure, unspecified; G30.9 Alzheimer's disease, unspecified; F02.811 Dementia in other diseases classified elsewhere, unspecified severity, with agitation; E11.9 Type 2 diabetes mellitus without complications; Z79.4 Long term (current) use of insulin; Z79.02 Long term (current) use of antithrombotics/antiplatelets; Z79.899 Other long term (current) drug therapy
CPT/HCPCS: 36415; 80053; 80307; 81001; 83735; 85025; 87077; 87086; 87186; 93005; 96360; 96365; 99284; P9612; J0696; A9270-GY

== ENCOUNTER 2023-05-02 22:16 | Observation (INO) | payer MEDICARE ==
[2023-05-02 22:56] LABS: Absolute Neutrophil Ct (ANC) 6.53 x10^3/uL (1.4-6.9); BASOPHIL % 0.5 % (0.0-0.4); Basophil (Absolute #) 0.04 x10^3/uL (0-0.4); Eosinophil % 0.4 % (0.00-5.0); Eosinophil (Absolute #) 0.03 x10^3/uL (0-0.5); Hematocrit 42.2 % (42-50); Hemoglobin 13.7 g/dL (12.5-18.0); IMMATURE GRAN # 0.03 x10^3u/L (0.00-0.03); IMMATURE GRAN % 0.4 % (0.00-0.4); Lymphocyte (Absolute #) 0.86 x10^3/uL (1.0-4.6); Lymphocytes % 10.3 % (24.0-44.0); Mean Cell Volume 89.6 fL (78-100); Mean Corpuscular Hemoglobin 29.1 pg (26-32); Mean Corpuscular Hgb Concent. 32.5 g/dL (32-36); Mean Platelet Volume 9.9 fL (7.5-11.0); Monocyte (Absolute #) 0.87 x10^3/uL (0.0-1.3); Monocytes % 10.4 % (0.0-12.0); Platelet Count 225 x10^3/uL (150-450); Red Blood Count 4.71 x10^6/uL (4.1-5.6); Red Cell Distribution Width 13.2 % (11.5-14.0); White Blood Count 8.4 x10^3/uL (4.0-10.5)
[2023-05-02 23:18] LABS: Calcium 8.6 mg/dL (8.4-10.2); Creatinine 1 1.56 mg/dL (0.66-1.25); EST GLOMERULAR FILTRATION RATE 46.2 ML/MIN
--- NOTE | 2023-05-02 23:24 | ERPHSYRPT ---
- History of Present Illness Time Seen by Provider: 05/02/23 23:19 Source: EMS, [facility] Exam Limitations: no limitations Patient Subjective Stated Complaint: pt is nonverbal and not following any commands. pt will look toward staff when his name is spoken loudly. nonpurposeful movements noted to all extremities. per EMS pt brought due to "fever" 2 hours ago and fall without obvious injury at approx 1900. [facility] reiterated this information and stated that there was no medication administered for elevated temp of 99.5 ax. Triage Nursing Assessment: pt brought to room 5 via EMS stretcher and pulled over onto ED per staff x3. pt looks toward staff when his name is spoken loudly but otherwise doesn't follow any commands or verbalize at all. nonpurposeful movement noted to all extremities. no obvious injuries noted. pt with resp even and unlabored. lung sounds clear bilat, bilat radial and pedal pulses palpable. heart sounds present and normal. all information for triage documentation acquired from [facility] paperwork that accompanied pt to ED. Physician History: Patient is 77-year-old male with significant past medical history of dementia hypertension COPD recently patient is diagnosed with COVID 1 day ago. [facility] is at [facility] and at around 1900 hrs. patient was found to have 101 degree temperature. per EMS pt brought due to "fever" 2 hours ago and fall without obvious injury at approx 1900. [facility] reiterated this information and stated that there was no medication administered for elevated temp of 99.5 ax. Now patient is afebrile. No other visible symptoms Timing/Duration: today Associated Symptoms: denies symptoms Allergies/Adverse Reactions: clopidogrel bisulfate [From Plavix] Adverse Reaction (Verified 05/02/23 23:28) Home Medications: Insulin Lispro [Humalog Kwikpen U-100] 10 units SQ TIDAC 12/31/15 [History] Rivastigmine Tartrate [Exelon] 6 mg PO BID 12/31/15 [History] Clopidogrel Bisulfate [Clopidogrel] 75 mg PO DAILY 03/29/23 [History] Insulin Lispro [Humalog] 0 unit SQ UD 03/29/23 [History] Melatonin 10 mg PO HS 03/29/23 [History] Metoprolol Tartrate 25 mg [Lopressor 25MG Tab] 25 mg PO BID 03/29/23 [History] Potassium Chloride 10 meq PO BID 03/29/23 [History] Tamsulosin HCl 0.4 mg [Flomax 0.4 MG] 0.4 mg PO HS 03/29/23 [History] Ascorbic Acid 500 mg [Vitamin C 500 MG] 1,000 mg PO DAILY 05/02/23 [History] Azithromycin [Zithromax] 500 mg PO DAILY 05/02/23 [History] Clotrimazole Topical 1 applic TOP BID 05/02/23 [History] Docusate Sodium [Colace] 100 mg PO BID 05/02/23 [History] Insulin Glargine [Lantus Insulin] 10 unit SQ DAILY 05/02/23 [History] Insulin Glargine [Lantus Insulin] 30 unit SQ HS 05/02/23 [History] Lorazepam 0.5 mg [Ativan 0.5 MG] 0.5 mg PO TID 05/02/23 [History] Magnesium Hydroxide 30 ml [Milk of Magnesia 30 ml] 10 ml PO DAILY PRN 05/02/23 [History] Nystatin Cream 30 gm [Nystop 30 gm Cream] 30 gm TP TID 05/02/23 [History] Zinc Gluconate [Zinc] 50 mg PO DAILY 05/02/23 [History] glucagon HCL [Glucagon Emergency Kit] 1 mg IM UD PRN 05/02/23 [History] risperiDONE [Risperdal] 0.25 mg PO BID PRN 05/02/23 [History] Hx Tetanus, Diphtheria Vaccination/Date Given: (unknown- pt nonverbal) Hx Influenza Vaccination/Date Given: (unknown- pt nonverbal) Hx Pneumococcal Vaccination/Date Given: Yes Immunizations Up to Date: (unknown- pt nonverbal) Travel Risk - International Travel Have you traveled outside of the country in past 3 weeks: No - Coronavirus Screening Are you exhibiting any of the following symptoms?: No Close contact with a COVID-19 positive Pt in past 14-21 Days: No - Vaccine Status Have you recieved a Covid-19 vaccination: No (unknown- pt nonverbal) 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 - Vaccination Dates Dates if Unknown: unknown- pt nonverbal - Review of Systems Constitutional: Fever, No Chills Eyes: No Symptoms Ears, Nose, & Throat: No Symptoms Respiratory: No Cough, No Dyspnea Cardiac: No Chest Pain, No Edema, No Syncope Abdominal/Gastrointestinal: No Abdominal Pain, No Nausea, No Vomiting, No Diarrhea Genitourinary Symptoms: No Dysuria Musculoskeletal: No Back Pain, No Neck Pain Skin: No Rash Neurological: No Dizziness, No Focal Weakness, No Sensory Changes Psychological: No Symptoms Endocrine: No Symptoms All Other Systems: Reviewed and Negative - Past Medical History Pertinent Past Medical History: Yes Neurological History: Alzheimer's Disease, Dementia, Stroke Cardiac History: Congestive Heart Failure, Coronary Artery Disease, High Cholesterol Respiratory History: CHF, Sleep Apnea, Other Endocrine Medical History: Diabetes Type II Musculoskeletal History: Other Psycho-Social History: Anxiety, Depression, Other Male Reproductive Disorders: Prostate Problems Other Medical History: pt unable to answer questions- hx obtained from pt's chart. - AORTIC VALVE STENOSIS WITH HX OF REPLACEMENT. - HX OF KIDNEY STONES. - LEARNING DISABILITY. - PVD. - insomnia. - psychotic disturbance, mood disturbance. - cognitive communication deficit. - Covid 19 - Past Surgical History Past Surgical History: (unknown- pt nonverbal) Other Surgical History: obtained from previous visit - Social History Smoking Status: Unknown if ever smoked Exposure to second hand smoke: No Drug Use: none Patient Lives Alone: No - Nursing Vital Signs Nursing Vital Signs: Initial Vital Signs Temperature 98.9 F 05/02/23 22:28 Pulse Rate 75 05/02/23 22:28 Respiratory Rate 20 05/02/23 22:28 Blood Pressure 134/61 05/02/23 22:28 O2 Sat by Pulse Oximetry 96 05/02/23 22:28 Pain Scale Pain Intensity 0 - Physical Exam General Appearance: no apparent distress, alert Eye Exam: PERRL/EOMI ENT Exam: normal ENT inspection, No pharyngeal erythema, No tonsillar exudate Neck Exam: supple, full range of motion, No meningismus Respiratory Exam: normal breath sounds, lungs clear, no respiratory distress Cardiovascular/Chest Exam: normal heart sounds, regular rate/rhythm, No murmur, No edema Gastrointestinal/Abdominal Exam: soft, non tender, no distention Extremity Exam: non-tender, normal range of motion, normal inspection, normal capillary refill Neurologic Exam: alert, oriented x 3, cooperative, office coordinator II-XII nml as tested, normal mood/affect, sensation nml, No motor deficits Skin Exam: normal color, warm, dry, No rash SpO2: 98 - Course Nursing assessment & vital signs reviewed: Yes - Radiology Exams Chest X-ray Interpretation: Reviewed by me, No Pneumonia - CT Exams Head CT Interpretation: Tele-radiologist Report Ordered Tests: Active Orders 24 hr Category Date Time Status CHEST 1 VIEW (PORTABLE) Stat Exams 05/02/23 22:33 Taken HEAD WITHOUT CONTRAST [CT] Stat Exams 05/03/23 01:05 Taken CBC W DIFF Stat Lab 05/02/23 22:54 Completed CMP Stat Lab 05/02/23 22:54 Completed POCT GLUCOSE Stat Lab 05/03/23 01:00 Completed Medication Summary Generic Name Dose Route Start Last Admin Trade Name Freq PRN Reason Stop Dose Admin Sodium Chloride 1,000 mls @ 999 mls/hr 05/03/23 01:04 Sodium Chloride 0.9% 1000 Ml IV 05/03/23 02:04 .Q1H1M STA Ceftriaxone Sodium/Dextrose 1 g in 50 mls @ 100 mls/hr 05/03/23 01:46 Rocephin 1 Gm-D5w 50 Ml Bag IV 05/03/23 02:15 STAT STA Discontinued Medications Generic Name Dose Route Start Last Admin Trade Name Freq PRN Reason Stop Dose Admin Ceftriaxone Sodium 1,000 mg 05/03/23 01:04 Ceftriaxone Sodium 1000 Mg Inj Vial IV 05/03/23 01:05 STAT ONE Sodium Chloride Confirm 05/03/23 01:00 Sodium Chloride 0.9% 1000 Ml Administered 05/03/23 01:01 Dose 1,000 mls @ ud .ROUTE .[facility] Lab/Rad Data: Laboratory Result Diagrams 05/02/23 22:54 05/02/23 22:54 Laboratory Results 05/03/23 05/02/23 05/02/23 Range/Units 01:00 22:54 22:54 WBC 8.4 (4.0-10.5) x10^3/uL RBC 4.71 (4.1-5.6) x10^6/uL Hgb 13.7 (12.5-18.0) g/dL Hct 42.2 (42-50) % MCV 89.6 (78-100) fL MCH 29.1 (26-32) pg MCHC 32.5 (32-36) g/dL RDW 13.2 (11.5-14.0) % Plt Count 225 (150-450) x10^3/uL MPV 9.9 (7.5-11.0) fL Gran % 78.0 H (36.0-66.0) % Immature Gran % (Auto) 0.4 (0.00-0.4) % Nucleat RBC Rel Count 0.0 (0.00-0.1) % Eos # (Auto) 0.03 (0-0.5) x10^3/uL Immature Gran # (Auto) 0.03 (0.00-0.03) x10^3u/L Absolute Lymphs (auto) 0.86 L (1.0-4.6) x10^3/uL Absolute Monos (auto) 0.87 (0.0-1.3) x10^3/uL Absolute Nucleated RBC 0.00 (0.00-0.01) x10^3u/L Lymphocytes % 10.3 L (24.0-44.0) % Monocytes % 10.4 (0.0-12.0) % Eosinophils % 0.4 (0.00-5.0) % Basophils % 0.5 (0.0-0.4) % Absolute Granulocytes 6.53 (1.4-6.9) x10^3/uL Basophils # 0.04 (0-0.4) x10^3/uL Sodium 135 L (137-145) mmol/L Potassium 4.0 (3.5-5.1) mmol/L Chloride 100 (98-107) mmol/L Carbon Dioxide 24 (22-30) mmol/L Anion Gap 14.0 (5-15) MEQ/L BUN 22 H (9-20) mg/dL Creatinine 1.56 H (0.66-1.25) mg/dL Estimated GFR 46.2 ML/MIN Glucose 163 H (74-106) mg/dL POC Glucometer TNP Calcium 8.6 (8.4-10.2) mg/dL Total Bilirubin 1.00 (0.2-1.3) mg/dL AST 28 (17-59) U/L ALT 17 (0-50) U/L Alkaline Phosphatase 103 (38-126) U/L Serum Total Protein 7.0 (6.3-8.2) g/dL Albumin 4.0 (3.5-5.0) g/dL - Progress Progress: unchanged Progress Note: 05/03/23 01:06 Patient was being discharged and while getting him in the car patient suddenly had a few seconds of syncopal episode become unresponsive so he was immediately bring it back into the emergency room. IV fluid was started. CT head was done. Which and patient is being admitted as observation. Discussed with : Other (hospitalist service) Will see patient in: hospital (observation) Counseled pt/family regarding: lab results, diagnosis, need for follow-up Medical Desision Making - Independent Historian Additional History obtained from: Assisted nurse - Diagnostic Testing Diagnostic test were ordered, analyzed, and reviewed by me: Yes - Risk of complications The pt has a high risk of morbidity or mortality based on: Decision regarding ho spitilization or escalation of hosp level of care - Departure Departure Disposition: Observation Clinical Impression: COVID, Fever due to virus, Syncope and collapse, Dementia with aggressive behavior Condition: Fair Critical Care Time: Yes Critical Care Time(excluding separately billable procedures): Critical 30-74 mins Referrals: HARLAN BEAL DO [Primary Care Provider] - Follow up/PCP as directed Instructions: Fever, Adult (DC) Additional Instructions: Discharge/Care Plan VALERIE DHALIWAL was seen on 05/02/23 in the Emergency Room. The patient was counseled regarding Diagnosis,Lab results, Imaging studies, need for follow up and when to return to the Emergency Room. Prescriptions given: Discharge Note I have spoken with the patient and/or caregivers. I have explained the patient's condition, diagnosis and treatment plan based on the information available to me at this time. I have answered the patient's and/or caregiver's questions and addressed any concerns. The patient and/or caregivers have as good understanding of the patient's diagnosis, condition and treatment plan as can be expected at this point. The vital signs have been stable. The patient's condition is stable and appropriate for discharge from the emergency department. The patient will pursue further outpatient evaluation with the primary care physician or other designated or consulting physician as outlined in the discharge instructions. The patient and/or caregivers are agreeable to this plan of care and follow-up instructions have been explained in detail. The patient and/or caregivers have received these instruction. The patient/and or caregivers are aware that any significant change in condition or worsening of symptoms should prompt an immediate return to this or the closest emergency department or call 911. VALERIE DHALIWAL was seen on 05/02/23 n the Emergency Room. At that time you were treated for an emergent condition, during your visit Laboratory, Radiology and/or other procedures may have been ordered. It is very important that you follow-up with your Primary Care Physician HARLAN BAEL, within the next 24-48 hours to review your Emergency Room visit and the final results of testing that was ordered. Some test results such as Urine Cultures, Blood Cultures, and other cultures if ordered will not be finalized for 24-48 hours. If you do not have a Primary Care Provider please call the medical records department at [phone] ext [phone] to obtain a copy of your results or you may sign into our patient portal to obtain these results by visiting us @ [email or web address] and completing the following steps: 1. Click on the Patient Portal link 2. Click the Patient Self Enrollment Link to complete the enrollment form and entering your 3. Once the enrollment form is completed you will receive an email with a temporary ID and password at the email address you provided. 4. Next choose a user name and password. Your user name must be at least 4 characters long and your password must be at least 4 characters long. 5. Choose a security question from the list and provide your answer to the question. If you already have signed into the Health Portal you may access your Health Care Information 09/03 by the following steps: 1. Login to our website @ [email or web address] 2. Enter your original user name and password. FAQS The [facility] Health Portal is an online tool that contains your Lab Results, Radiology Reports, Visit History, Discharge Instructions and Health Summary Lab and Radiology Results will not be available for 72 hours on the portal. The Portal is a secure site, passwords are encryted and URLs are re-written so they cannot be copied and pasted. You and authorized family members are the only ones who can access your Portal. Also there is a timeout feature that protects your information if you leave the Portal page open. If you have technical difficulty please use the Contact Us link on the page this will allow you to submit any questions you have regarding the Portal or you may contact the Medical Record Department at [phone] ext [phone].
[2023-05-03] MEDS ORDERED: Sodium Chloride 0.9% 1000 ML 1,000 ML ONE (01:00)
[2023-05-03] MEDS ORDERED: Sodium Chloride 0.9% 1000 ML 1,000 ML IV STA (01:04)
[2023-05-03] MEDS ORDERED: Rocephin 1000 MG INJ IV ONE (01:04)
[2023-05-03] MEDS ORDERED: ROCEPHIN 1 Gm-D5w 50 ml Bag** 1 G/50 ML IVPB IV STA (01:46)
[2023-05-03] MEDS ORDERED: ROCEPHIN 1 Gm-D5w 50 ml Bag** 1 G/50 ML IVPB IV ONE (01:49)
--- NOTE | 2023-05-03 02:21 | XRAY ---
CLINICAL HISTORY:syncopal episode COMPARISON:09/17/2020. TECHNIQUE:Axial, non-contrast CT scan of the Brain was performed from the skull base up to the vertex in bony and soft tissue windows. Coronal and sagittal reconstructions done. FINDINGS: Age related cortical involutional changes associated with prominence of extra axial cortical sulci, gyral pattern, sylvian and interhemispheric fissures, basal cisterns and cerebellar folia and dilated lateral ventricles. Redemonstration of periventricular white matter hypodensities due to chronic microvascular ischemic changes. Again noted hypodensities in the capsuloganglionic regions on both sides representing lacunar infarcts. CSF dense attenuation seen in the left temporal lobe probably representing changes of encephalomalacia related to prior ischemic insult No acute territorial infarct, bleed, mass effect, or hydrocephalus. No midline shift. There is no mass lesion in either CP angle. There is no space-occupying lesion. Posterior fossa structures appear normal. The IACs are unremarkable. The skull bones appear normal. Visualized paranasal sinuses shows mucosal thickening in both maxillary, ethmoidal, sphenoidal and frontal sinuses representing chronic mucosal disease. Deviated nasal septum towards left side. Septal perforation noted anteriorly with defect measuring about 10 mm IMPRESSION: 1. No detectable acute intracranial hemorrhage or established acute territory infarction. 2. Age-related brain involutional changes --- Senile atrophic changes. 3. Chronic microvascular ischemic changes.CT may not detect early acute infarct, MRI with diffusion-weighted imaging may be recommended for further evaluation if clinically suspicious. 4. No significant interval changes when compared with prior study. The [facility] ER department office was called at [phone] at 01:12 AM MEAT CARRIER, 05/03/2023 and Aldo Jackson was informed about negative Stroke. Electronically Signed by: Jojo Finley MD. (05/03/2023 01:19:49 MEAT CARRIER)
[2023-05-03] MEDS ORDERED: TYLENOL 325 MG PO PRN (02:34)
[2023-05-03] MEDS ORDERED: GLUCAGON HCL 1 MG IM PRN (02:42)
--- NOTE | 2023-05-03 02:54 | PCM.HP ---
History of Present Illness - Chief Complaint Chief Complaint: Covid, syncope, fever History of Present Illness: 77 yo male with hx of Alzheimher's dementia(non-verbal at baseline) sent from [facility] for fever. Pt tested + for COVID 1 day ago. He had a temp today of 101.[facility] MD called and told to give tylenol. [facility] sent patient anyway. When EMS arrived pt with temp of 99. Brought to ED. Work-up unrevealing. Pt was to be sent back home but ambulance unavailable at night. Pt was to be sent via car. In transferring pt to car, he had a vasovagal incident. Pt brought back in to the ED: CT head unrevealing. Pt admitted for obs. - Review of Systems Constitutional: Fever, No Chills Eyes: No Symptoms Ears, Nose, & Throat: No Symptoms Respiratory: No Cough, No Short Of Breath Cardiac: No Chest Pain, No Edema, No Syncope Abdominal/Gastrointestinal: No Abdominal Pain, No Nausea, No Vomiting, No Diarrhea Genitourinary Symptoms: No Dysuria Musculoskeletal: No Back Pain, No Neck Pain Skin: No Rash Neurological: No Dizziness, No Focal Weakness, No Sensory Changes Psychological: No Symptoms Endocrine: No Symptoms Hematologic/Lymphatic: No Symptoms Immunological/Allergic: No Symptoms Medications & Allergies Home Medications: Home Medication List Insulin Lispro [Humalog Kwikpen U-100] 10 units SQ TIDAC 12/31/15 [History Confirmed 05/02/23] Rivastigmine Tartrate [Exelon] 6 mg PO BID 12/31/15 [History Confirmed 05/02/23] Clopidogrel Bisulfate [Clopidogrel] 75 mg PO DAILY 03/29/23 [History Confirmed 05/02/23] Insulin Lispro [Humalog] 0 unit SQ UD 03/29/23 [History Confirmed 05/02/23] Melatonin 10 mg PO HS 03/29/23 [History Confirmed 05/02/23] Metoprolol Tartrate 25 mg [Lopressor 25MG Tab] 25 mg PO BID 03/29/23 [History Confirmed 05/02/23] Potassium Chloride 10 meq PO BID 03/29/23 [History Confirmed 05/02/23] Tamsulosin HCl 0.4 mg [Flomax 0.4 MG] 0.4 mg PO HS 03/29/23 [History Confirmed 05/02/23] Ascorbic Acid 500 mg [Vitamin C 500 MG] 1,000 mg PO DAILY 05/02/23 [History Confirmed 05/02/23] Azithromycin [Zithromax] 500 mg PO DAILY 05/02/23 [History Confirmed 05/02/23] Clotrimazole Topical 1 applic TOP BID 05/02/23 [History Confirmed 05/02/23] Docusate Sodium [Colace] 100 mg PO BID 05/02/23 [History Confirmed 05/02/23] Insulin Glargine [Lantus Insulin] 10 unit SQ DAILY 05/02/23 [History Confirmed 05/02/23] Insulin Glargine [Lantus Insulin] 30 unit SQ HS 05/02/23 [History Confirmed 05/02/23] Lorazepam 0.5 mg [Ativan 0.5 MG] 0.5 mg PO TID 05/02/23 [History Confirmed 05/02/23] Magnesium Hydroxide 30 ml [Milk of Magnesia 30 ml] 10 ml PO DAILY PRN 05/02/23 [History Confirmed 05/02/23] Nystatin Cream 30 gm [Nystop 30 gm Cream] 30 gm TP TID 05/02/23 [History Confirmed 05/02/23] Zinc Gluconate [Zinc] 50 mg PO DAILY 05/02/23 [History Confirmed 05/02/23] glucagon HCL [Glucagon Emergency Kit] 1 mg IM UD PRN 05/02/23 [History Confirmed 05/02/23] risperiDONE [Risperdal] 0.25 mg PO BID PRN 05/02/23 [History Confirmed 05/02/23] Allergies/Adverse Reactions: Allergies Allergy/AdvReac Type Severity Reaction Status Date / Time clopidogrel bisulfate AdvReac Verified 05/02/23 23:28 [From Plavix] - Past Medical History Past Medical History: Yes Neurological History: Alzheimer's Disease, Dementia, Stroke Cardiac History: Congestive Heart Failure, Coronary Artery Disease, High Cholesterol Respiratory History: CHF, Sleep Apnea, Other Endocrine Medical History: Diabetes Type II Musculoskelatal History: Other Pyscho-Social History: Anxiety, Depression, Other Male Reproductive Disorders: Prostate Problems Comment: pt unable to answer questions- hx obtained from pt's chart. - AORTIC VALVE STENOSIS WITH HX OF REPLACEMENT. - HX OF KIDNEY STONES. - LEARNING DISABILITY. - PVD. - insomnia. - psychotic disturbance, mood disturbance. - cognitive communication deficit. - Covid 19 - Past Surgical History Past Surgical History: (unknown- pt nonverbal) Other Surgical History: obtained from previous visit - Social History Smoking Status: Unknown if ever smoked Exposure to second hand smoke: No Alcohol: None Drug Use: none - Physical Exam Vital Signs: Vital Signs - 24 hr Temp Pulse Resp BP BP Pulse Ox 05/03/23 02:00 98 05/03/23 02:00 99.5 F 88 26 H 130/56 130/56 96 05/03/23 01:13 100.6 F 87 32 H 105/62 94 L 05/03/23 00:31 167/84 05/03/23 00:01 95 H 20 142/71 98 05/02/23 23:31 96 H 18 144/65 99 05/02/23 23:03 81 16 116/48 98 05/02/23 23:01 79 18 76/63 96 05/02/23 22:54 82 20 117/94 93 L 05/02/23 22:31 89 18 178/73 98 05/02/23 22:28 98.9 F 75 20 134/61 96 General Appearance: no apparent distress Neurologic Exam: alert Eye Exam: PERRL/EOMI, eyes nml inspection Ears, Nose, Throat Exam: normal ENT inspection Respiratory Exam: normal breath sounds Cardiovascular Exam: regular rate/rhythm, normal heart sounds Gastrointestinal/Abdomen Exam: soft, normal bowel sounds, No tenderness Extremity Exam: normal inspection Results - Labs Lab/Micro Results: Lab Results-Last 24 Hours 05/02/23 05/02/23 05/03/23 Range/Units 22:54 22:54 01:00 WBC 8.4 (4.0-10.5) x10^3/uL RBC 4.71 (4.1-5.6) x10^6/uL Hgb 13.7 (12.5-18.0) g/dL Hct 42.2 (42-50) % MCV 89.6 (78-100) fL MCH 29.1 (26-32) pg MCHC 32.5 (32-36) g/dL RDW 13.2 (11.5-14.0) % Plt Count 225 (150-450) x10^3/uL MPV 9.9 (7.5-11.0) fL Gran % 78.0 H (36.0-66.0) % Immature Gran % (Auto) 0.4 (0.00-0.4) % Nucleat RBC Rel Count 0.0 (0.00-0.1) % Eos # (Auto) 0.03 (0-0.5) x10^3/uL Immature Gran # (Auto) 0.03 (0.00-0.03) x10^3u/L Absolute Lymphs (auto) 0.86 L (1.0-4.6) x10^3/uL Absolute Monos (auto) 0.87 (0.0-1.3) x10^3/uL Absolute Nucleated RBC 0.00 (0.00-0.01) x10^3u/L Lymphocytes % 10.3 L (24.0-44.0) % Monocytes % 10.4 (0.0-12.0) % Eosinophils % 0.4 (0.00-5.0) % Basophils % 0.5 (0.0-0.4) % Absolute Granulocytes 6.53 (1.4-6.9) x10^3/uL Basophils # 0.04 (0-0.4) x10^3/uL Sodium 135 L (137-145) mmol/L Potassium 4.0 (3.5-5.1) mmol/L Chloride 100 (98-107) mmol/L Carbon Dioxide 24 (22-30) mmol/L Anion Gap 14.0 (5-15) MEQ/L BUN 22 H (9-20) mg/dL Creatinine 1.56 H (0.66-1.25) mg/dL Estimated GFR 46.2 ML/MIN Glucose 163 H (74-106) mg/dL POC Glucometer TNP Calcium 8.6 (8.4-10.2) mg/dL Total Bilirubin 1.00 (0.2-1.3) mg/dL AST 28 (17-59) U/L ALT 17 (0-50) U/L Alkaline Phosphatase 103 (38-126) U/L Serum Total Protein 7.0 (6.3-8.2) g/dL Albumin 4.0 (3.5-5.0) g/dL - Radiology Impressions Radiology Exams & Impressions: Radiology Procedures Category Date Time Status CHEST 1 VIEW (PORTABLE) Stat Exams 05/02/23 22:33 Taken HEAD WITHOUT CONTRAST [CT] Stat Exams 05/03/23 01:05 Completed Assessment/Plan (1) COVID Current Visit: Yes Status: Acute Assessment & Plan: 1. COVID 19: no pneumonia at current. CXR clear. Add paxlovid(decreased efficacy of plavix while on this medication, benefits far outweigh risks as pt is at risk for severe disease) 2. Syncope: apparently vasovagal. Will monitor on tele. 3. DM: Continue lantus + SS. 4. FEN: oral diet 5. PX: Lovenox 6. Continue ceftriaxone for now until UA back. Tx back to [facility] in am Angel Barrios MD entire encounter done via telemedicine Code(s): U07.1 - COVID-19 Telemedicine Encounter - Telemedicine Encounter Telemedicine Encounter: The entirety of this encounter was performed via Telemedicine"
[2023-05-03] MEDS ORDERED: PAXLOVID 150-100 MG PACK (EUA) (RENAL DOSING) PO SCH (02:55)
[2023-05-03] MEDS: Sodium Chloride 0.9% 1000 ML 1,000 ML IV SCH (03:34)
[2023-05-03 04:36] LABS: Appearance Turbid (Clear); Bacteria Many /HPF (None Seen); Bilirubin Negative (Negative); Blood Large (Negative); Epithelial Cells None Seen /HPF (None Seen); Glucose, Urine 100 mg/dL (Negative); Hyaline Casts >50 /LPF (0-2); Ketones Trace (Negative); Leukocyte Esterase Moderate (Negative); Nitrite Positive (Negative); Protein,Urine Dip 300 (Negative); RBC >100 /HPF (0-5); WBC >100 /HPF (0-5)
[2023-05-03 04:37] LABS: ADD URINE CULTURE? ORDERED SEPARATELY (NO)
[2023-05-03 06:39] LABS: Absolute Neutrophil Ct (ANC) 5.96 x10^3/uL (1.4-6.9); BASOPHIL % 0.4 % (0.0-0.4); Basophil (Absolute #) 0.03 x10^3/uL (0-0.4); Eosinophil (Absolute #) 0 x10^3/uL (0-0.5); Hematocrit 37.4 % (42-50); IMMATURE GRAN # 0.03 x10^3u/L (0.00-0.03); IMMATURE GRAN % 0.4 % (0.00-0.4); Lymphocyte (Absolute #) 0.81 x10^3/uL (1.0-4.6); Lymphocytes % 10.5 % (24.0-44.0); Mean Cell Volume 89.7 fL (78-100); Mean Corpuscular Hemoglobin 28.8 pg (26-32); Mean Corpuscular Hgb Concent. 32.1 g/dL (32-36); Monocyte (Absolute #) 0.89 x10^3/uL (0.0-1.3); Monocytes % 11.5 % (0.0-12.0); Neutrophil % 77.2 % (36.0-66.0); Platelet Count 209 x10^3/uL (150-450); Red Blood Count 4.17 x10^6/uL (4.1-5.6); White Blood Count 7.7 x10^3/uL (4.0-10.5)
[2023-05-03 06:54] LABS: ALBUMIN 3.4 g/dL (3.5-5.0); ANION GAP 14.4 MEQ/L (5-15); BILIRUBIN,TOTAL 0.8 mg/dL (0.2-1.3); Calcium 7.9 mg/dL (8.4-10.2); Creatinine 1 1.42 mg/dL (0.66-1.25); EST GLOMERULAR FILTRATION RATE 51.5 ML/MIN; Potassium 4.2 mmol/L (3.5-5.1); Total Protein 6.3 g/dL (6.3-8.2)
--- NOTE | 2023-05-03 07:21 | XRAY ---
Indication: Positive Covid 19. Comparison: January 02, 2022 Portable chest now demonstrates minimal bibasilar infiltrates/atelectasis without consolidation/large effusion. Heart not enlarged. Bony thorax intact with osteopenia and mild degenerative changes
[2023-05-03] MEDS ORDERED: NON-FORMULARY ITEM (Insulin Lispro [Humalog Kwikpen U-100] 100 UNIT/ML Insuln.Pen) SQ SCH (07:30)
[2023-05-03] MEDS ORDERED: GlucaGen 1 MG IM PRN (07:55)
[2023-05-03] MEDS: HUMALOG SQ SCH ×3 (08:10→16:15)
[2023-05-03] MEDS: Lantus Insulin SQ SCH ×2 (08:27→21:21)
[2023-05-03] MEDS ORDERED: REMDESIVIR 200 MG in Sodium Chloride 0.9% 250 ML 250 ML IV ONE (09:00)
[2023-05-03] MEDS ORDERED: MEDICATION INTERVENTION MC SCH (09:30)
[2023-05-03] MEDS ORDERED: AZITHROMYCIN 500 MG PO SCH (10:00)
[2023-05-03] MEDS ORDERED: NON-FORMULARY ITEM (Zinc Gluconate 50 MG Tablet) PO SCH (10:00)
[2023-05-03] MEDS ORDERED: RIVASTIGMINE TARTRATE 6 MG PO SCH (10:00)
[2023-05-03] MEDS: Docusate Sodium 100 MG PO SCH ×2 (10:14→21:21)
[2023-05-03] MEDS: Ativan 0.5 MG PO SCH ×3 (10:18→21:21)
[2023-05-03] MEDS: Vitamin C 500 MG PO SCH (10:18)
[2023-05-03] MEDS: PLAVIX Tablet PO SCH (10:19)
[2023-05-03] MEDS: Lopressor 25MG Tab PO SCH ×2 (10:19→21:22)
[2023-05-03] MEDS: Zinc Gluconate 50 MG PO SCH (10:19)
[2023-05-03] MEDS: ENOXAPARIN SODIUM SQ SCH (10:20)
[2023-05-03] MEDS: Zithromax 500 MG/ 250 ML NaCl Premix 500 MG/250 ML IVPB IV SCH (12:06)
[2023-05-03] MEDS: Hydromorphone 1 mg/ml Injection IV PRN ×2 (12:07→18:37)
[2023-05-03] MEDS: MELATONIN PO SCH (21:22)
[2023-05-03] MEDS: ROCEPHIN 1 Gm-D5w 50 ml Bag** 1 G/50 ML IVPB IV SCH (21:22)
[2023-05-03] MEDS: Flomax 0.4 MG PO SCH (21:28)
[2023-05-03] MEDS ORDERED: NON-FORMULARY ITEM (Melatonin [Melatonin] 5 MG Tablet) PO SCH (22:00)
[2023-05-04] MEDS: Sodium Chloride 0.9% 1000 ML 1,000 ML IV SCH (02:38)
[2023-05-04 05:01] LABS: Hematocrit 34.4 % (42-50); Hemoglobin 11.4 g/dL (12.5-18.0); Mean Cell Volume 87.8 fL (78-100); Mean Corpuscular Hemoglobin 29.1 pg (26-32); Mean Corpuscular Hgb Concent. 33.1 g/dL (32-36); Mean Platelet Volume 9.6 fL (7.5-11.0); Platelet Count 207 x10^3/uL (150-450); Red Blood Count 3.92 x10^6/uL (4.1-5.6); Red Cell Distribution Width 13.5 % (11.5-14.0); White Blood Count 6.5 x10^3/uL (4.0-10.5)
[2023-05-04 05:19] LABS: ALBUMIN 3.1 g/dL (3.5-5.0); ANION GAP 13.7 MEQ/L (5-15); BILIRUBIN,TOTAL 0.5 mg/dL (0.2-1.3); Calcium 7.7 mg/dL (8.4-10.2); Creatinine 1 1.49 mg/dL (0.66-1.25); EST GLOMERULAR FILTRATION RATE 48.7 ML/MIN; Potassium 4.1 mmol/L (3.5-5.1); Total Protein 5.8 g/dL (6.3-8.2)
[2023-05-04] MEDS: Hydromorphone 1 mg/ml Injection IV PRN ×2 (06:32→14:41)
[2023-05-04] MEDS: Lantus Insulin SQ SCH ×2 (08:37→22:55)
[2023-05-04] MEDS: HUMALOG SQ SCH ×3 (08:44→16:55)
[2023-05-04] MEDS: ENOXAPARIN SODIUM SQ SCH (09:00)
[2023-05-04] MEDS: Ativan 0.5 MG PO SCH ×3 (09:00→22:04)
[2023-05-04] MEDS: Lopressor 25MG Tab PO SCH ×2 (09:00→22:04)
[2023-05-04] MEDS: Vitamin C 500 MG PO SCH (09:00)
[2023-05-04] MEDS: Docusate Sodium 100 MG PO SCH ×2 (09:01→22:03)
[2023-05-04] MEDS: PLAVIX Tablet PO SCH (09:01)
[2023-05-04] MEDS: Zithromax 500 MG/ 250 ML NaCl Premix 500 MG/250 ML IVPB IV SCH (09:02)
[2023-05-04] MEDS: Zinc Gluconate 50 MG PO SCH (09:02)
[2023-05-04] MEDS: REMDESIVIR 100 MG in Sodium Chloride 100ML MINI-BAG PLUS 100 ML IV SCH (10:15)
--- NOTE | 2023-05-04 10:38 | PCM.NOTE ---
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 Pt tested + for COVID 1 day ago. He had a temp today of 101.[place] MD called and told to give tylenol. [place] sent patient anyway. When EMS arrived pt with temp of 99. Brought to ED. Work-up unrevealing. Pt was to be sent back home but ambulance unavailable at night. Pt was to be sent via car. In transferring pt to car, he had a vasovagal incident. Pt brought back in to the ED: CT head unrevealing. Pt admitted for obs. 05/04/23 Pt resting in bed. He is more awake and alert today. Not requiring any oxygen today. Urine culture pending. Per family pt has a hx of stage 4 kidney disease and follows with Dr. Panda for chronic urology concerns. Continue antibiotics for UTI and pneumonia and Remdesivir for COVID. Lung sounds are clear. He does not appear to be in pain. No further concerns at his time. - Review of Systems Constitutional: No Fever, No Chills Eyes: No Symptoms Ears, Nose, & Throat: No Symptoms Respiratory: No Cough, No Short Of Breath Cardiac: No Chest Pain, No Edema, No Syncope Abdominal/Gastrointestinal: No Abdominal Pain, No Nausea, No Vomiting, No Diarrhea Genitourinary Symptoms: No Dysuria Musculoskeletal: No Back Pain, No Neck Pain Skin: No Rash Neurological: No Dizziness, No Focal Weakness, No Sensory Changes Psychological: No Symptoms Endocrine: No Symptoms Hematologic/Lymphatic: No Symptoms Immunological/Allergic: No Symptoms Objective Exam General Appearance: no apparent distress, alert Neurologic Exam: alert, cooperative, normal mood/affect, sensation nml, No motor deficits Skin Exam: normal color, warm, dry Eye Exam: PERRL, EOMI, eyes nml inspection Ears, Nose, Throat Exam: normal ENT inspection, pharynx normal, moist mucous membranes Neck Exam: normal inspection, non-tender, supple, full range of motion Respiratory Exam: normal breath sounds, lungs clear, No respiratory distress Cardiovascular Exam: regular rate/rhythm, normal heart sounds Gastrointestinal/Abdomen Exam: soft, No tenderness, No mass Extremity Exam: normal inspection, normal range of motion Back Exam: normal inspection, normal range of motion, No CVA tenderness, No vertebral tenderness Male Genitalia Exam: deferred Rectal Exam: deferred OBJECTIVE DATA Vital Signs: Vital Signs - 24 hr Temp Pulse Resp BP Pulse Ox 05/04/23 10:00 81 16 94 L 05/04/23 08:00 16 05/04/23 07:39 97.3 F 84 13 155/41 95 05/04/23 06:00 89 05/04/23 03:40 98.9 F 58 L 10 L 165/78 96 05/04/23 02:00 92 H 95 05/04/23 00:00 99.0 F 90 18 158/85 92 L 05/03/23 22:00 97 H 92 L 05/03/23 19:58 16 05/03/23 19:41 99.4 F 108 H 16 177/72 94 L 05/03/23 18:00 99.3 F 93 H 16 93 L 05/03/23 16:00 100.2 F 94 H 18 153/69 93 L 05/03/23 13:42 85 18 90 L 05/03/23 11:40 98.7 F 82 18 159/71 92 L Pain Assessment - Last Documented Pain Intensity 6 Pain Scale Used [facility] Intake and Output: Intake & Output 05/01/23 05/02/23 05/03/23 05/04/23 11:59 11:59 11:59 11:59 Intake Total 60 1220 Output Total 20 1550 Balance 40 -330 Weight 100.7 kg Lab Results: Lab Results-Last 24 Hours 05/03/23 05/03/23 05/03/23 Range/Units 11:35 16:01 20:38 WBC (4.0-10.5) x10^3/uL RBC (4.1-5.6) x10^6/uL Hgb (12.5-18.0) g/dL Hct (42-50) % MCV (78-100) fL MCH (26-32) pg MCHC (32-36) g/dL RDW (11.5-14.0) % Plt Count (150-450) x10^3/uL MPV (7.5-11.0) fL Sodium (137-145) mmol/L Potassium (3.5-5.1) mmol/L Chloride (98-107) mmol/L Carbon Dioxide (22-30) mmol/L Anion Gap (5-15) MEQ/L BUN (9-20) mg/dL Creatinine (0.66-1.25) mg/dL Estimated GFR ML/MIN Glucose (74-106) mg/dL POC Glucometer 169 H 173 H 141 H (74 to 106) mg/dL Calcium (8.4-10.2) mg/dL Total Bilirubin (0.2-1.3) mg/dL AST (17-59) U/L ALT (0-50) U/L Alkaline Phosphatase (38-126) U/L Serum Total Protein (6.3-8.2) g/dL Albumin (3.5-5.0) g/dL 05/04/23 05/04/23 05/04/23 Range/Units 04:57 04:57 07:24 WBC 6.5 (4.0-10.5) x10^3/uL RBC 3.92 L (4.1-5.6) x10^6/uL Hgb 11.4 L (12.5-18.0) g/dL Hct 34.4 L (42-50) % MCV 87.8 (78-100) fL MCH 29.1 (26-32) pg MCHC 33.1 (32-36) g/dL RDW 13.5 (11.5-14.0) % Plt Count 207 (150-450) x10^3/uL MPV 9.6 (7.5-11.0) fL Sodium 136 L (137-145) mmol/L Potassium 4.1 (3.5-5.1) mmol/L Chloride 104 (98-107) mmol/L Carbon Dioxide 23 (22-30) mmol/L Anion Gap 13.7 (5-15) MEQ/L BUN 21 H (9-20) mg/dL Creatinine 1.49 H (0.66-1.25) mg/dL Estimated GFR 48.7 ML/MIN Glucose 138 H (74-106) mg/dL POC Glucometer 141 H (74 to 106) mg/dL Calcium 7.7 L (8.4-10.2) mg/dL Total Bilirubin 0.50 (0.2-1.3) mg/dL AST 25 (17-59) U/L ALT 15 (0-50) U/L Alkaline Phosphatase 80 (38-126) U/L Serum Total Protein 5.8 L (6.3-8.2) g/dL Albumin 3.1 L (3.5-5.0) g/dL Radiology Exams: Radiology Procedures Category Date Time Status CHEST 1 VIEW (PORTABLE) Stat Exams 05/02/23 22:33 Completed HEAD WITHOUT CONTRAST [CT] Stat Exams 05/03/23 01:05 Completed Multi-Disciplinary Progress Notes: Multi-Disciplinary Progress Notes 05/04/23 10:02 Case Management Note by Dilma Gonzalez S/W JENNIFER AT [facility]- SHE REPORTS PATIENT IS ABLE TO COME BACK WHENEVER HE IS MEDICALLY READY- NO PA NEEDED FOR INSURANCE Initialized on 05/04/23 10:02 - END OF NOTE Assessment/Plan (1) COVID Current Visit: Yes Status: Acute Assessment & Plan: - remdesivir - RA o2 95% - Monitor daily labs - Chest XR: 05/02 Portable chest now demonstrates minimal bibasilar infiltrates/atelectasis without consolidation/large effusion. Heart not enlarged. Bony thorax intact with osteopenia and mild degenerative changes - Started Azithromycin for infiltrates Code(s): U07.1 - COVID-19 (2) Pulmonary infiltrates on CXR Current Visit: Yes Status: Acute Assessment & Plan: - See COVID Code(s): R91.8 - OTHER NONSPECIFIC ABNORMAL FINDING OF LUNG FIELD (3) Acute UTI Current Visit: No Status: Acute Assessment & Plan: - Rocephin - Follow Dr. Panda for chronic urology concerns - Navarrete in place - Does not have chronic navarrete - UC pending Code(s): N39.0 - URINARY TRACT INFECTION, SITE NOT SPECIFIED (4) Syncope and collapse Current Visit: Yes Status: Acute Assessment & Plan: - Tele - 09/18 Covid/ UTI Code(s): R55 - SYNCOPE AND COLLAPSE (5) Dementia with aggressive behavior Current Visit: Yes Status: Chronic Assessment & Plan: - continue home meds Code(s): F03.918 - UNSP DEMENTIA, UNSP SEVERITY, WITH OTHER BEHAVIORAL DISTURB (6) BPH (benign prostatic hyperplasia) Current Visit: Yes Status: Chronic Assessment & Plan: - chronic - continue flomax - Follows Dr. 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
[2023-05-04] MEDS: MELATONIN PO SCH (22:03)
[2023-05-04] MEDS: Flomax 0.4 MG PO SCH (22:04)
[2023-05-04] MEDS: ROCEPHIN 1 Gm-D5w 50 ml Bag** 1 G/50 ML IVPB IV SCH (22:04)
[2023-05-05] MEDS: Hydromorphone 1 mg/ml Injection IV PRN ×3 (01:56→15:29)
[2023-05-05] MEDS: Sodium Chloride 0.9% 1000 ML 1,000 ML IV SCH (01:56)
[2023-05-05 04:57] LABS: Hematocrit 33.2 % (42-50); Hemoglobin 10.8 g/dL (12.5-18.0); Mean Cell Volume 88.5 fL (78-100); Mean Corpuscular Hemoglobin 28.8 pg (26-32); Mean Corpuscular Hgb Concent. 32.5 g/dL (32-36); Platelet Count 205 x10^3/uL (150-450); Red Blood Count 3.75 x10^6/uL (4.1-5.6); Red Cell Distribution Width 13.5 % (11.5-14.0); White Blood Count 6.4 x10^3/uL (4.0-10.5)
[2023-05-05 05:15] LABS: ALBUMIN 2.8 g/dL (3.5-5.0); ANION GAP 11.7 MEQ/L (5-15); BILIRUBIN,TOTAL 0.4 mg/dL (0.2-1.3); Calcium 7.7 mg/dL (8.4-10.2); Creatinine 1 1.46 mg/dL (0.66-1.25); EST GLOMERULAR FILTRATION RATE 49.9 ML/MIN; Potassium 3.8 mmol/L (3.5-5.1); Total Protein 5.4 g/dL (6.3-8.2)
[2023-05-05] MEDS: Lantus Insulin SQ SCH (08:36)
[2023-05-05] MEDS: Ativan 0.5 MG PO SCH (08:37)
[2023-05-05] MEDS: PLAVIX Tablet PO SCH (08:37)
[2023-05-05] MEDS: ENOXAPARIN SODIUM SQ SCH (08:37)
[2023-05-05] MEDS: Lopressor 25MG Tab PO SCH (08:38)
[2023-05-05] MEDS: Vitamin C 500 MG PO SCH (08:38)
[2023-05-05] MEDS: HUMALOG SQ SCH ×2 (08:39→11:22)
[2023-05-05] MEDS: Zinc Gluconate 50 MG PO SCH (08:39)
[2023-05-05] MEDS: Zithromax 500 MG/ 250 ML NaCl Premix 500 MG/250 ML IVPB IV SCH (08:39)
[2023-05-05] MEDS: Docusate Sodium 100 MG PO SCH (08:39)
--- NOTE | 2023-05-05 09:50 | XRAY ---
Indication: Pain following fall. Comparison: None 2 frontal views left shoulder demonstrates minimally displaced comminuted fracture humeral head and neck with effusion. Elsewhere osteopenia and moderate AC degenerative changes.
--- NOTE | 2023-05-05 09:52 | XRAY ---
Indication: Pain following fall. Comparison: None Lateral and oblique view left forearm demonstrates osteopenia and moderate scattered vascular calcifications. No other gross bony, articular, or soft tissue abnormalities.
--- NOTE | 2023-05-05 09:52 | XRAY ---
Indication: Pain following fall. Comparison: None 2 view left humerus demonstrates minimally displaced comminuted fracture humeral head and neck with effusion. Elsewhere osteopenia and old left lower rib fractures.
[2023-05-05] MEDS: REMDESIVIR 100 MG in Sodium Chloride 100ML MINI-BAG PLUS 100 ML IV SCH (10:13)
[2023-05-05 11:43] VITALS: BP 113/69; TEMP 98.7
[2023-05-05] MEDS ORDERED: MERREM 500 MG in Sodium Chloride 100ML MINI-BAG PLUS 100 ML IV SCH (12:00)
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
[2023-05-05 15:12] VITALS: PULSE 75; RESP 18; O2SAT 96
[2023-05-05] MEDS ORDERED: Ativan 0.5 MG PO SCH (22:00)
== END 2023-05-05 15:55 | disposition home or self-care (01) ==
LOC: ED 22:16 → MED SURG 05-03 02:26
PROVIDERS: ADMIT Internal Medicine Critical Care Medicine; ATTEND Internal Medicine Critical Care Medicine
DX: U07.1 COVID-19 (principal); R91.8 Other nonspecific abnormal finding of lung field; N39.0 Urinary tract infection, site not specified; R55 Syncope and collapse; F03.918 Unspecified dementia, unspecified severity, with other behavioral disturbance; N40.0 Benign prostatic hyperplasia without lower urinary tract symptoms; E11.22 Type 2 diabetes mellitus with diabetic chronic kidney disease; N18.9 Chronic kidney disease, unspecified; I25.10 Atherosclerotic heart disease of native coronary artery without angina pectoris; I50.9 Heart failure, unspecified; E78.5 Hyperlipidemia, unspecified; S42.302A Unspecified fracture of shaft of humerus, left arm, initial encounter for closed fracture; W19.XXXA Unspecified fall, initial encounter; Z79.4 Long term (current) use of insulin; Z79.899 Other long term (current) drug therapy; Z20.828 Contact with and (suspected) exposure to other viral communicable diseases
CPT/HCPCS: 36000; 36415; 51702; 70450; 71045; 73030; 73060; 73090; 80053; 81001; 82947; 85025; 85027; 87077; 87086; 87186; 93005; 93268; 94762; 96360; 96365; 99285; 99291; J0248; J0456; J0696; J1170; J1650; Q3014; A9270-GY; G0378